=== PATIENT | female | born 1980 | race Caucasian/White ===

== ENCOUNTER → 2023-03-27 08:40 | Outpatient (CLI) | payer OTHER, SELFPAY ==
[2023-03-27 09:24] LABS: Hematocrit 37.6 % (36-46); Hemoglobin 12.5 g/dL (12.0-16.0); Mean Corpuscular HGB Conc 33.4 % (30-36); Mean Corpuscular Hemoglobin 29.5 PG (26-34); Mean Corpuscular Volume 88.3 fL (80-100); Platelet Count 227 X10^3/uL (150-400); Red Blood Cell Count 4.25 X10^6/uL (4.0-5.2); Red Cell Distribution Width 14.7 % (11.6-14.8); White Blood Cell Count 5.8 X10^3/uL (4.5-11.0)
[2023-03-27 09:32] LABS: Alanine Aminotransferase 16 IU/L (<35); Albumin 4.1 g/dL (3.5-5.0); Albumin Globulin Ratio 1.5 (1.0-2.8); Alkaline Phosphatase 40 U/L (38-126); Aspartate Aminotransferase 21 IU/L (14-36); Bilirubin Total 0.5 mg/dL (0.2-1.3); Blood Urea Nitrogen 18 mg/dL (7-17); Calcium 8.8 mg/dL (8.4-10.2); Carbon Dioxide 27 mmol/L (22-32); Chloride 105 mmol/L (98-107); Cholesterol 184 mg/dL (140-199); Estimated Glomerular Filt Rate > 60 mL/min (>60); Globulin 2.8 g/dL (1.7-4.1); Glucose 87 mg/dL (70-100); HDL Cholesterol 74 mg/dL (40-60); HEMOLYSIS < 15 (0-50); LDL Cholesterol Calculated 96 mg/dL (<100); Potassium 4.5 mmol/L (3.4-5.1); Sodium 137 mmol/L (137-145); Total Protein 6.9 g/dL (6.3-8.2); Triglycerides 68 mg/dL (35-150)
[2023-03-27 09:59] LABS: TSH w/ Reflex to FT4 1.05 uIU/mL (0.47-4.68)
== END ==
PROVIDERS: Family Provider Physician Assistant; PCP Registered Nurse Diabetes Educator; Referring Provider Registered Nurse Diabetes Educator; Visit Provider Registered Nurse Diabetes Educator
DX: Z00.00 Encounter for general adult medical examination without abnormal findings (principal)
CPT/HCPCS: 36415; 80053; 80061; 84443; 85027

== ENCOUNTER → 2024-06-23 09:33 | Outpatient (CLI) | payer OTHER, SELFPAY ==
--- NOTE | 2024-06-23 09:34 | DI.US.S_ITS ---
LIMITED ULTRASOUND OF LEFT BREAST AND AXILLA: 06/23/2024 CLINICAL: Palpable left breast lump. Comparison is made to exams dated: 06/23/2024 mammogram - [facility] and 01/10/2019 mammogram - outside facility. Color flow and real-time ultrasound of the left breast 5-6 o'clock, and axilla regions were performed. Mcghee scale images of the real-time examination were reviewed. There is a 1.1 cm x 0.9 cm x 0.5 cm irregular mass with an angular margin in the left breast at 6 o'clock middle depth 5 cm from the nipple. This irregular mass is hypoechoic. This correlates as palpated and with mammography findings. There are related micro calcifications. Color flow imaging demonstrates that there is vascularity present. There is an area of surrounding microcalcifications as seen on same-day mammograms. No significant abnormalities were seen sonographically in the left axilla. IMPRESSION: SUSPICIOUS OF MALIGNANCY The 1.1 cm x 0.9 cm x 0.5 cm irregular mass in the left breast is at a high suspicion for malignancy. The findings and recommendations were discussed with the patient via telephone at the time of the exam. No significant abnormalities were seen sonographically in the left axilla. This exam was interpreted at Station ID: [id number]. Electronically Signed By: Enrique Aponte M.D. ar/:06/23/2024 11:24:39 letter sent: Biopsy Required Ultrasound BI-RADS: 4c High suspicion of malignancy
--- NOTE | 2024-06-23 09:34 | DI.MG.S_ITS ---
BILATERAL DIGITAL DIAGNOSTIC MAMMOGRAM 3D/2D: 06/23/2024 CLINICAL: Left breast lump. Comparison is made to exam dated: 01/10/2019 mammogram - outside facility. Both breasts are heterogeneously dense, which may obscure small masses (category c / 51-75% glandular tissue). There is a 3.3 cm x 7.2 cm area of segmental fine heterogeneous calcifications in the left breast at 6 o'clock middle depth. This correlates as palpated. No other significant masses, calcifications, or other findings are seen in either breast. IMPRESSION: INCOMPLETE: NEEDS ADDITIONAL IMAGING EVALUATION The 3.3 cm x 7.2 cm area of segmental fine heterogeneous calcifications in the left breast are indeterminate. Targeted ultrasound is recommended for further evaluation and will be performed immediately following this exam. Based on the Tyrer Cuzick model (a risk assessment model) the patient's lifetime risk is 14.1% and her 10 year risk is 2.7%. According to the ACR, ACS, and NCCN guidelines, an annual breast MRI exam along with mammogram is recommended if the patient's lifetime risk is 20% or greater. This exam was interpreted at Station ID: [id number]. NOTE: For mammograms, a report in lay terms will be sent to the patient. Approximately 15% of breast malignancies will not be visualized mammographically. In the management of a palpable breast mass, a negative mammogram must not discourage biopsy of a clinically suspicious lesion. Electronically Signed By: Enrique Aponte M.D. ar/:06/23/2024 11:18:09 ACR BI-RADS Category 0: Incomplete 3340F
== END ==
LOC: MAMMO 09:33
PROVIDERS: Family Provider Physician Assistant; PCP Registered Nurse Diabetes Educator; Referring Provider Physician Assistant; Visit Provider Physician Assistant
DX: R92.2 Inconclusive mammogram (principal); R92.1 Mammographic calcification found on diagnostic imaging of breast; N63.25 Unspecified lump in the left breast, overlapping quadrants; R92.333 Mammographic heterogeneous density, bilateral breasts
CPT/HCPCS: 76642; 77066; G0279

== ENCOUNTER → 2024-07-19 14:31 | Outpatient (CLI) | payer OTHER, SELFPAY ==
--- NOTE | 2024-07-19 | PATH_ITS ---
[facility] Accession Number: [id number] No. of containers..01 Tissue . 01 Material submitted: . breast - LEFT BREAST MASS 6:00 5 CMFN . 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 Nuclear grade: Grade 3 (high). Necrosis: Present, comedo necrosis. Associated calcifications: Not identified. Invasive carcinoma: Not definitively present as supported by SMA, p63 and HMWK immunostains. Lymphovascular invasion: Not definitively present as supported by ERG immunostain. - Predictive marker immunohistochemical studies are performed on block A with the in situ carcinoma showing the following results: Estrogen receptor (SP1): Positive (5%, weak intensity). Progesterone receptor (1E2): Negative (<1%). - Internal controls for ER and SD are positive. [facility] 07/24/2024 1633 Local . 01 Comment: As part of ongoing software quality tester, this case was reviewed by Dr. Judith Johnston who agrees with the interpretation. The scoring criteria for breast biomarkers by immunohistochemistry is based on the ASCO/CAP guidelines (Renan AC et al, J Clin Oncol: 2018 May 17;36(20):2308-8315 and Tiffanie STEWART et al, Arch Pathol Lab Med: 2009;134(6):907-22). Deparaffinized sections of formalin fixed tissue (along with appropriate positive controls) are incubated with the above antibody(s). Using the automated [place] stainer, tissue is incubated with the designated antibody which is then localized by a non-biotin, dual polymer detection system. The external controls are reviewed for appropriate reactivity and found to be adequate. Results on the target cell population are indicated above. These tests have not been validated on decalcified or alcohol-based fixed tissue. This test was developed and its performance characteristics determined by [employer]. It has not been cleared or approved by the U.S. Food and Drug Administration. The FDA has determined that such clearance or approval is not necessary. This test is used for clinical purposes. It should not be regarded as investigational or for research. - Technical Note: The immunohistochemical stains reported were performed at [facility] ([facility] [address], [facility] [address]). They were developed and their performance characteristics determined by [employer] They have not been cleared or approved by the U.S. Food and Drug Administration, although such approval is not required for analyte-specific reagents of this type. . 01 Electronically signed: . Dayna Rodriguez MD, Pathologist NPI- [id number] . 01 Gross description: . Received in formalin with two patient identifiers and breast, are multiple yellow-gresham soft tissue fragments admixed with hemorrhagic material aggregating to 1.4 x 1.3 x 0.3 cm. Filtered and submitted entirely in A1. . Specimen was removed on 07/19/2024 at 3:00 p.m. Cold ischemic time cannot be calculated. Total fixation time is approximately 26 hours. ([id number]) /MRV 07/20/2024 1630 Local . 01 Pathologist provided ICD-10: N63.20 . 01 CPT . 756073, R31137, O16574 Specimen Comment: A courtesy copy of this report has been sent to [phone] Performed at: [address], [place], [place] [id number] MD Clive Kaplan MD Phone: [phone]
--- NOTE | 2024-07-19 14:32 | DI.US.S_ITS ---
ULTRASOUND GUIDED BIOPSY LEFT BREAST USING VACUUM DEVICE WITH MARKING DEVICE INSERTED: 07/19/2024 CLINICAL: Left breast mass. PATIENT CONSENT: Risks (minor bleeding, infection, vasovagal reaction and repeat procedure), benefits and alternatives were explained to the patient and written informed consent was obtained. Correlation is made to exams dated: 07/19/2024 mammogram, 06/23/2024 ultrasound, 06/23/2024 mammogram - [facility], and 01/10/2019 mammogram - outside facility. An ultrasound guided biopsy using real-time ultrasound was performed for the irregular shaped mass located in the left breast at 6 o'clock anterior depth. The skin was prepped in the usual manner. Local anesthetic was administered to the access site. A small incision was made in the breast. The abnormality was approached from the lateral aspect. A biopsy needle was placed adjacent to the abnormality under ultrasound guidance. Once the needle was documented to be in the correct location, a specimen was obtained using the Mammotome biopsy system. The patient received additional topical anesthetic during the procedure. A titanium clip was inserted into the biopsy cavity. The specimen was sent to the laboratory for pathological analysis. IMPRESSION: ULTRASOUND GUIDED BIOPSY MALIGNANT Ultrasound guided biopsy of the mass in the left breast at 6 o'clock anterior depth was successful. 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 Of note, there are extensive segmental calcifications anterior and posterior to the biopsy clip with pathology identifying no associated calcifications with the DCIS. Recommend Breast MRI to evaluate extent of disease. Recommend surgical and oncological consultation. This exam was interpreted at Station ID: [id number] Pily Nagel M.D., Ph.D. [facility],/:07/26/2024 01:33:00 Entry: - 07/26/2024 08:32:27
--- NOTE | 2024-07-19 14:32 | DI.MG.S_ITS ---
UNILATERAL LEFT DIGITAL DIAGNOSTIC MAMMOGRAM 3D/2D - LEFT BREAST POST-PROCEDURE IMAGING FOR MARKER PLACEMENT: 07/19/2024 CLINICAL: Post left breast ultrasound biopsy, clip placment imaging. Comparison is made to exam dated: 01/10/2019 mammogram - outside facility. The breasts are heterogeneously dense, which may obscure small masses (category c / 51-75% glandular tissue). There is a marker clip in the appropriate position in the left breast anterior depth medial region seen on the craniocaudal view only. This marker clip placement is at the biopsy site. IMPRESSION: POST PROCEDURE MAMMOGRAM FOR MARKER PLACEMENT There was a successful marker clip placement in the left breast anterior depth medial region seen on the craniocaudal view only. Based on the Tyrer Cuzick model (a risk assessment model) the patient's lifetime risk is 15.0% and her 10 year risk is 2.9%. According to the ACR, ACS, and NCCN guidelines, an annual breast MRI exam along with mammogram is recommended if the patient's lifetime risk is 20% or greater. This exam was interpreted at Station ID: [id number]. NOTE: For mammograms, a report in lay terms will be sent to the patient. Approximately 15% of breast malignancies will not be visualized mammographically. In the management of a palpable breast mass, a negative mammogram must not discourage biopsy of a clinically suspicious lesion. Electronically Signed By: Pily Rogel M.D. melchor/:07/20/2024 18:16:00 Entry: - 07/21/2024 14:41:42 ACR BI-RADS Category Post-Procedure Mammogram for Marker Placement
== END ==
LOC: US 14:31
PROVIDERS: PCP Registered Nurse Diabetes Educator; Referring Provider Registered Nurse Diabetes Educator; Visit Provider Registered Nurse Diabetes Educator
DX: D05.12 Intraductal carcinoma in situ of left breast (principal); R92.333 Mammographic heterogeneous density, bilateral breasts
CPT/HCPCS: 19083; 77065

== ENCOUNTER → 2024-12-08 07:25 | Outpatient (CLI) | payer OTHER, SELFPAY ==
--- NOTE | 2024-12-08 07:32 | DI.RAD.S_ITS ---
PROCEDURE: XR LUMBAR SPINE 2-3V INDICATIONS: eval chronic lbp TECHNIQUE: 3 views of the lumbar spine were acquired. COMPARISON: None. FINDINGS: Bones: 5 [id number] vertebrae are present. There is normal bony alignment. No vertebral body compression fractures. No suspicious bony lesions. Minimal L5-S1 foraminal narrowing. Soft tissues: Overlying bowel gas pattern is normal. No suspicious soft tissue calcifications. IMPRESSION: No acute bony abnormality. Dictated by: Pily Rogel M.D. on 12/08/2024 at 15:37 Approved by: Pily Rogel M.D. on 12/08/2024 at 15:37
[2024-12-08 08:22] LABS: Alanine Aminotransferase 13 IU/L (<35); Albumin 4.3 g/dL (3.5-5.0); Albumin Globulin Ratio 1.8 (1.0-2.8); Alkaline Phosphatase 48 U/L (38-126); Aspartate Aminotransferase 22 IU/L (14-36); Bilirubin Total 0.4 mg/dL (0.2-1.3); Blood Urea Nitrogen 16 mg/dL (7-17); Calcium 9.2 mg/dL (8.4-10.2); Carbon Dioxide 25 mmol/L (22-32); Chloride 106 mmol/L (98-107); Cholesterol 174 mg/dL (140-199); Estimated Glomerular Filt Rate > 60 mL/min (>60); Globulin 2.4 g/dL (1.7-4.1); Glucose 88 mg/dL (70-100); HDL Cholesterol 84 mg/dL (40-60); HEMOLYSIS < 15 (0-50); LDL Cholesterol Calculated 81 mg/dL (<100); Potassium 4.4 mmol/L (3.4-5.1); Sodium 139 mmol/L (137-145); Total Protein 6.7 g/dL (6.3-8.2); Triglycerides 44 mg/dL (35-150)
[2024-12-08 08:24] LABS: Hematocrit 34.3 % (36-46); Hemoglobin 11.3 g/dL (12.0-16.0); Mean Corpuscular Hemoglobin 28.7 PG (26-34); Platelet Count 299 X10^3/uL (150-400); Red Blood Cell Count 3.94 X10^6/uL (4.0-5.2); Red Cell Distribution Width 14.1 % (11.6-14.8); White Blood Cell Count 5.5 X10^3/uL (4.5-11.0)
[2024-12-08 08:52] LABS: TSH w/ Reflex to FT4 2.32 uIU/mL (0.47-4.68)
== END ==
LOC: LAB 07:25 → RAD 07:32
PROVIDERS: PCP Registered Nurse Diabetes Educator; Referring Provider Registered Nurse Diabetes Educator; Visit Provider Registered Nurse Diabetes Educator
DX: Z00.00 Encounter for general adult medical examination without abnormal findings (principal)
CPT/HCPCS: 36415; 72100; 80053; 80061; 84443; 85027

== ENCOUNTER → 2025-05-18 14:59 | Outpatient (CLI) | payer OTHER, SELFPAY ==
[2025-05-18 16:15] LABS: HEMOLYSIS < 15 (0-50); Iron 115 ug/dL (37-170)
[2025-05-18 16:25] LABS: Add Manual Diff / Slide Review NO; Hematocrit 37.3 % (36-46); Hemoglobin 12.4 g/dL (12.0-16.0); Lymphocytes Absolute Auto 1300 /uL (1100-4500); Mean Corpuscular HGB Conc 33.2 % (30-36); Mean Corpuscular Hemoglobin 28.6 PG (26-34); Mean Corpuscular Volume 86.2 fL (80-100); Platelet Count 303 X10^3/uL (150-400)
[2025-05-18 16:27] LABS: Percent Iron Saturation 28 % (15-50); Total Iron Binding Capacity 404 ug/dL (265-497); Transferrin 352 mg/dL (206-381)
[2025-05-18 16:53] LABS: Ferritin 7 ng/mL (6-137)
[2025-05-18 17:24] LABS: Folate 10.7 ng/mL (2.76-20.0); Vitamin B12 289 pg/mL (239-931)
== END ==
LOC: LAB 15:00
PROVIDERS: PCP Registered Nurse Diabetes Educator; Referring Provider Registered Nurse Diabetes Educator; Visit Provider Registered Nurse Diabetes Educator
DX: D64.9 Anemia, unspecified (principal)
CPT/HCPCS: 36415; 82607; 82728; 82746; 83540; 83550; 85025

== ENCOUNTER 2025-06-14 11:39 | Day surgery (SDC) | payer OTHER, SELFPAY ==
[2025-06-14 12:21] VITALS: BP 101/66; PULSE 69; RESP 16; TEMP 36.1; O2SAT 99
--- NOTE | 2025-06-14 12:28 | PM.HP.IH.1 ---
History of Present Illness History of Present Illness Date Patient Seen: 06/14/25 Time Patient Seen: 12:28 Chief complaint: Colonoscopy Narrative: Fatimah is a 45-year-old woman presenting for colonoscopy, her first. No family history of colon cancer. [facility] Medical History Ductal carcinoma in situ of left breast Social History marital status: number of children: 3 household members: spouse and children lives independently: Yes occupational status: employed alcohol intake: current substance use type: does not use Meds Home Medications and Allergies Home Medications ?Medication ?Instructions ?Recorded ?Confirmed ?Type acetaminophen 500 mg tablet mg PO 12/12/24 12/12/24 History cephalexin 500 mg capsule mg PO 4XD PRN 12/12/24 12/12/24 History gabapentin 300 mg capsule mg PO DAILY PRN 12/12/24 12/12/24 History ibuprofen 600 mg tablet mg PO 12/12/24 12/12/24 History sodium,potassium,mag sulfates 17.5 See Rx Instructions PO .COMPLEX 05/04/25 Rx gram-3.13 gram-1.6 gram oral soln #354 mL (Suprep Bowel Prep Kit) Allergies Allergy/AdvReac Type Severity Reaction Status Date / Time No Known Drug Allergies Allergy Verified 06/14/25 12:14 Exam Vital Signs (past 8 hours): - 06/14/25 12:21 Temperature 97 F L Pulse Rate 69 Respiratory Rate 16 Blood Pressure 101/66 Pulse Oximetry 99 Oxygen Delivery Method Room Air Oxygen Delivery Method Room Air Const General: healthy appearing Assessment & Plan Assessment and plan (1) Colon cancer screening: Status: Acute Plan Colonoscopy Time-Based Coding :: [TOTAL MINUTES] spent with patient and on the chart (including review of chart, obtaining history, exam, reviewing outside data, placing orders, documenting exam and treatment plan, and counseling patient) on [DATE]. [employer] Document charge(s): No
[2025-06-14] MEDS: LACTATED RINGERS 1,000 ML 42 ML IV (12:48)
--- NOTE | 2025-06-14 12:56 | PM.OP.COLON ---
Operative Date/Time/Diagnoses Date of procedure: 06/14/25 Time of procedure: 12:56 Pre-op diagnosis: Colon cancer screening Post-op diagnosis: same Procedure & Clinicians Study performed: Colonoscopy Same procedure(s) as scheduled: Yes Surgeon: Ang Orta Anesthesia Type: MAC +/- Procedure Notes Procedure in detail: Surgeon: Ang Orta MD Anesthesia: Ben De La Fuente.Charles Procedure: The patient was brought to the endoscopy suite, placed in left lateral decubitus position. The patient was connected to monitoring devices. A time-out was performed. Sedation was administered. Once the patient was adequately sedated, a digital rectal exam was performed and was normal. The scope was then inserted and advanced to the cecum where the appendiceal orifice was identified and photographed. The scope was then slowly withdrawn over greater than 6 minutes. The mucosa was thoroughly inspected. No abnormalities were found. The scope was retroflexed in the rectum. The scope was straightened and removed. The patient was awakened and brought to recovery. Scope withdrawal time: 7 minutes Sedation time: 12 minutes EBL: 0 Findings: Normal colon Post-procedure Recommendations: Colonoscopy in 10 years Disposition: PACU
[2025-06-14 12:59] VITALS: BP 97/55; PULSE 69; RESP 16; TEMP 36.4; O2SAT 98
[2025-06-14 13:04] VITALS: BP 99/58; PULSE 65; RESP 15; TEMP 36.4; O2SAT 99
== END 2025-06-14 13:28 | disposition home or self-care (01) ==
PROVIDERS: PCP Registered Nurse Diabetes Educator; Referring Provider Registered Nurse Diabetes Educator; Visit Provider Surgery
PROC: 0DJD8ZZ Inspection of Lower Intestinal Tract, Via Natural or Artificial Opening Endoscopic (ICD-10-PCS; CPT 45378; principal; 2025-06-14 13:00)
DX: Z12.11 Encounter for screening for malignant neoplasm of colon (principal)
CPT/HCPCS: 45378; J2704

== ENCOUNTER → 2025-08-29 09:13 | Outpatient (CLI) | payer OTHER, SELFPAY | LOC: WC 09:18 | PROVIDERS: Family Provider Registered Nurse Diabetes Educator; PCP Registered Nurse Diabetes Educator; Referring Provider Surgery Plastic and Reconstructive Surgery; Visit Provider Surgery | DX: T81.31XA Disruption of external operation (surgical) wound, not elsewhere classified, initial encounter (principal); S21.001A Unspecified open wound of right breast, initial encounter | CPT/HCPCS: 11042; 87070; 87077; 87186; 87205; 99203; 99212 ==

== ENCOUNTER → 2025-09-05 11:53 | Outpatient (CLI) | payer OTHER, SELFPAY | LOC: WC 11:53 | PROVIDERS: Family Provider Registered Nurse Diabetes Educator; PCP Registered Nurse Diabetes Educator; Referring Provider Registered Nurse Diabetes Educator; Visit Provider Surgery | DX: T81.31XA Disruption of external operation (surgical) wound, not elsewhere classified, initial encounter (principal); S21.001A Unspecified open wound of right breast, initial encounter; L98.8 Other specified disorders of the skin and subcutaneous tissue; T86.828 Other complications of skin graft (allograft) (autograft); Z85.3 Personal history of malignant neoplasm of breast; Z90.13 Acquired absence of bilateral breasts and nipples | CPT/HCPCS: 11042 ==

== ENCOUNTER → 2025-09-12 11:54 | Outpatient (CLI) | payer OTHER, SELFPAY | LOC: WC 11:55 | PROVIDERS: Family Provider Registered Nurse Diabetes Educator; PCP Registered Nurse Diabetes Educator; Referring Provider Registered Nurse Diabetes Educator; Visit Provider Surgery | DX: T81.89XA Other complications of procedures, not elsewhere classified, initial encounter (principal); S21.001A Unspecified open wound of right breast, initial encounter | CPT/HCPCS: 99212; 99213 ==

== ENCOUNTER → 2025-09-19 11:28 | Outpatient (CLI) | payer OTHER, SELFPAY | LOC: WC 11:30 | PROVIDERS: Family Provider Registered Nurse Diabetes Educator; PCP Registered Nurse Diabetes Educator; Referring Provider Registered Nurse Diabetes Educator; Visit Provider Surgery | DX: T81.31XD Disruption of external operation (surgical) wound, not elsewhere classified, subsequent encounter (principal); S21.001D Unspecified open wound of right breast, subsequent encounter | CPT/HCPCS: 99212; 99213 ==